=== PATIENT | male | born 1945 | race Caucasian/White ===

== ENCOUNTER 2022-08-10 07:55 | Day surgery (SDC) | payer MEDICARE, MEDICAID ==
[~2022-08-10] VITALS: Ht 172.7 cm; Wt 95.5 kg
[2022-08-10 08:10] VITALS: BP 139/103
[2022-08-10] MEDS ORDERED: LIDOcaine Viscous 15ml cup ONE (08:11)
[2022-08-10] MEDS ORDERED: MIDAZolam 1 MG/ML 5ML VIAL ONE (08:11)
[2022-08-10] MEDS ORDERED: fentaNYL/PF 50MCG/1 ML 2ML syringe ONE (08:11)
[2022-08-10] MEDS ORDERED: ATOR40TA PO (08:19)
[2022-08-10] MEDS ORDERED: ASPI-1265 PO (08:19)
[2022-08-10] MEDS ORDERED: GLIM2TAB6 PO (08:20)
[2022-08-10] MEDS ORDERED: HYDR25TA5 PO (08:21)
[2022-08-10] MEDS ORDERED: LISI40TA13 PO (08:22)
[2022-08-10 09:30] VITALS: BP 134/63
[2022-08-10 09:40] VITALS: BP 104/69
[2022-08-10 09:50] VITALS: BP 106/40
[2022-08-10 10:00] VITALS: BP 130/70
== END 2022-08-10 10:15 | disposition home or self-care (01) ==
LOC: GI LAB 07:55
PROVIDERS: ATTEND Internal Medicine Gastroenterology
DX: K63.89 Other specified diseases of intestine (principal); K62.89 Other specified diseases of anus and rectum; K29.50 Unspecified chronic gastritis without bleeding; K57.30 Diverticulosis of large intestine without perforation or abscess without bleeding; K44.9 Diaphragmatic hernia without obstruction or gangrene; K21.00 Gastro-esophageal reflux disease with esophagitis, without bleeding
CPT/HCPCS: 43239; 45380; G0500; J2250; J3010; J7030; Z7512; 88305; 88313; 88342; 99152; A4620